=== PATIENT | male | born 1970 | race Caucasian/White ===

== ENCOUNTER 2019-11-23 11:22 | Observation (INO) | payer SELFPAY ==
[~2019-11-23] VITALS: Ht 170.2 cm; Wt 86.4 kg
[~2019-11-23 11:22] MED LIST: NITROGLYCERIN 0.2 MG/HR PATCH TD SCH
[2019-11-23] MEDS ORDERED: CARV3.12 PO (11:55)
[2019-11-23] MEDS ORDERED: FURO80TA2 PO (11:55)
[2019-11-23] MEDS ORDERED: XANA0.5T PO (11:55)
[2019-11-23] MEDS ORDERED: CARV6.25 PO (11:55)
[2019-11-23] MEDS ORDERED: CLOP75TA2 PO (11:55)
[2019-11-23 12:03] LABS: BASO # 0.1 10^3/uL (0.0-0.2); BASO % 0.7 % (0.0-1.0); EOS # 0.2 10^3/uL (0.0-0.5); EOS % 3.1 % (0.0-3.0); HEMATOCRIT 38.7 % (42.0-52.0); LYMPH # 1.2 10^3/uL (1.5-5.0); LYMPH % 16.7 % (24.0-44.0); MEAN CORPUSCULAR HEMOGLOBIN 26.3 pg (27.0-33.0); MEAN CORPUSCULAR VOLUME 84.7 fl (80.0-96.0); MONO # 0.4 10^3/uL (0.0-0.8); MONO % 5.9 % (0.0-5.0); NEUTROPHILS # 5.3 10^3/uL (1.5-8.5); NEUTROPHILS % 73.3 % (36.0-66.0); PLATELET COUNT, AUTOMATED 307 10^3/uL (150-450); RED BLOOD COUNT 4.57 10^6/uL (4.30-6.10); WHITE BLOOD COUNT 7.2 10^3/uL (4.0-10.0)
[2019-11-23 12:26] LABS: INR 1.05; PROTHROMBIN TIME 13.4 SECONDS (11.8-14.0)
[2019-11-23 12:27] LABS: PARTIAL THROMBOPLASTIN TIME 31.6 SECONDS (25.0-38.4)
[2019-11-23] MEDS ORDERED: CLOPIDOGREL 75 MG TAB PO ONE (12:30)
[2019-11-23] MEDS ORDERED: CARVedilol 6.25 MG TAB PO ONE (12:30)
[2019-11-23] MEDS ORDERED: ALPRAZolam 0.25 MG TAB PO ONE (12:30)
[2019-11-23] MEDS ORDERED: FUROSEMIDE 100MG/10ML VIAL (J1940) IV ONE (12:30)
[2019-11-23 12:33] LABS: ALBUMIN 4.1 GM/DL (3.2-5.2); ALT/SGPT 20 U/L (12-78); BILIRUBIN,DIRECT 0.3 MG/DL (0.0-0.2); BILIRUBIN,TOTAL 1.8 MG/DL (0.2-1.0); BLOOD UREA NITROGEN 14 MG/DL (7-18); CALCIUM LEVEL 9.4 MG/DL (8.5-10.1); CARBON DIOXIDE LEVEL 26 MEQ/L (21-32); CHLORIDE LEVEL 107 MEQ/L (98-107); CK-MB VALUE MASS 3.7 NG/ML (<3.6); CPK CREATINE PHOSPHOKINASE 79 U/L (39-308); CREATININE FOR GFR 0.91 MG/DL (0.70-1.30); GLOMERULAR FILTRATION RATE > 60.0 (>56); GLUCOSE, FASTING 98 MG/DL (70-100); LIPASE 115 U/L (73-393); MB/CK RELATIVE INDEX 4.68 (< OR =4); NT-PRO BNP 10793 PG/ML (<125); POTASSIUM SERUM 4.5 MEQ/L (3.5-5.1); SODIUM LEVEL 139 MEQ/L (136-145); TOTAL PROTEIN 7.8 GM/DL (6.4-8.2); TROPONIN I 0.06 NG/ML (< 0.10)
[2019-11-23 12:37] LABS: FREE T4 0.99 NG/DL (0.76-1.46); THYROID STIMULATING HORMONE 0.861 uIU/ML (0.358-3.740)
[2019-11-23] MEDS ORDERED: ALPR0.25 PO (12:54)
[2019-11-23] MEDS ORDERED: ACETAMINOPHEN TAB 650MG DOSE (2X325MG) PO PRN (13:30)
[2019-11-23] MEDS ORDERED: MOM 30ML SUSPENSION UDC PO PRN (13:30)
[2019-11-23] MEDS ORDERED: MAALOX 30 ML SUSP *UDC PO PRN (13:30)
--- NOTE | 2019-11-23 13:46 | HPEPDOC ---
General Date of Admission Date of Service: Nov 23, 2019 Chief Complaint The patient is a 49-year-old male admitted with a reason for visit of Shortness Of Breath/ Anxiety. Source: Patient Exam Limitations: No limitations Timing/Duration: Other Severity: Moderate Associated Symptoms: Other (chest pain) History of Present Illness This is a 49 years old white male who recently had a four-vessel bypass surgery done in [place] in September 2019. Patient has not followed up with any cardiol ogist physician afterwards and he also ran out of his medications some time ago. Patient complaining of increasing chest pressure but not chest pain, nonradiating, persistent, associated with shortness of breath exacerbated by ambulation, not relieved with any analgesics since last 2 weeks. Patient being admitted with the diagnosis of most likely acute systolic congestive heart failure and noncompliance with medication therapy. Home Medications Scheduled Carvedilol (Carvedilol) 3.125 Mg Tablet, 3.125 MG PO BID, (Reported) prescribed 09/20/19 for 30 days. patient states take both 6.25mg bid and 3.125 bid Carvedilol (Carvedilol) 6.25 Mg Tablet, 6.25 MG PO BID, (Reported) prescribed 10/10/19 30 days patient states takes both 6.25mg bid and 3.125mg bid Clopidogrel Bisulfate (Clopidogrel) 75 Mg Tablet, 75 MG PO DAILY, (Reported) Furosemide (Furosemide) 80 Mg Tablet, 80 MG PO DAILY, (Reported) Scheduled PRN Alprazolam (Alprazolam) 0.25 Mg Tablet, 0.25 MG PO BID PRN for ANXIETY, (Reported) Allergies Coded Allergies: Penicillins (Verified Allergy, Severe, throat swelling , 11/23/19) lorazepam (Verified Adverse Reaction, Intermediate, violent , 11/23/19) Past Medical History Medical History Hypertension, hyperlipidemia, coronary artery disease status post four-vessel bypass surgery, anxiety Surgical History Quadruple bypass surgery Social History * Smoker: former Smoker, other (, quit in September 2019) Alcohol: Denies Drugs: marijuana A-FIB/CHADSVASC A-FIB History Current/History of A-Fib/PAF?: No Review of Systems Constitutional: Denies: Chills, Fever, Malaise, Night Sweats, Weakness, Fatigue, Weight Loss, Lethargy, Other Eyes: Denies: Pain, Vision change, Conjunctivae inflammation, Eyelid inf lammation, Redness, Other ENT: Denies: Head Aches, Ear Pain, Dysphagia, Sinus Congestion, Post Nasal Drip, Sore Throat, Epistaxis, Other Symptoms Skin: Denies: Rash, Lesions, Jaundice, Bruising, Itching, Dry, Breakdown, Nail Changes, Other Pulmonary: Reports: Dyspnea Cardiovascular: Reports: Other Symptoms (, chest pressure) Gastrointestinal: Denies: Nausea, Vomiting, Abdominal Pain, Diarrhea, Constipation, Melena, Hematochezia, Other Symptoms Genitourinary: Denies: Dysuria, Frequency, Incontinence, Hematuria, Retention, Other Symptoms Hematologic: Denies: Bruising, Bleeding Excessively, Petecchia, Purpura, Enlarged Lymph Nodes, Other Hematologic Endocrine: Denies: Polydipsia, Polyphagia, Polyuria, Heat Intolerance, Cold Intolerance, Other Endocrine Sx Musculoskeletal: Denies: Neck Pain, Back Pain, Shoulder Pain, Arm Pain, Hand Pain, Leg Pain, Foot Pain, Joint Pain, Muscle Pain, Spasms, Other Symptoms Neurological: Denies: Weakness, Numbness, Incoordination, Change in speech, Confusion, Seizures, Other Symptoms Psych: Denies: Mood Normal, Anxiety, Depression, Memory Issues, Thoughts of Self Harm, Anger, Thoughts of Harming Other, Other Psych Physical Examination General Exam: Positive: Alert, Cooperative Eye Exam: Positive: PERRLA, Conjunctiva & lids normal ENT Exam: Positive: Atraumatic, Mucous membr. moist/pink Neck Exam: Positive: Supple Chest Exam: Positive: Other (, bilateral basal crackles) Heart Exam: Positive: Rate Normal, Normal S1, Normal S2 Abdomen Exam: Positive: Normal bowel sounds, Soft Extremity Exam: Positive: Other (, 1+ bipedal edema) Skin Exam: Positive: Nl turgor and temperature Neuro Exam: Positive: Strength at 5/5 X4 ext, Cranial Nerves 3-12 NL Psych Exam: Positive: Anxiety, Oriented x 3 Vital Signs Vital Signs Date Time Temp Pulse Resp B/P (MAP) Pulse Ox O2 Delivery O2 Flow Rate FiO2 11/23/19 13:00 157/99 (118) 11/23/19 12:52 101 97 11/23/19 11:24 97.8 12 Room Air Laboratory Data Labs 24H Laboratory Tests 2 11/23/19 11:50: Immature Granulocyte % (Auto) 0.3, Neutrophils (%) (Auto) 73.3H, Lymphocytes (%) (Auto) 16.7L, Monocytes (%) (Auto) 5.9H, Eosinophils (%) (Auto) 3.1H, Basophils (%) (Auto) 0.7, Neutrophils # (Auto) 5.3, Lymphocytes # (Auto) 1.2L, Monocytes # (Auto) 0.4, Eosinophils # (Auto) 0.2, Basophils # (Auto) 0.1, Nucleated Red Blood Cells % (auto) 0.0, Prothrombin Time 13.4, Prothromb Time International Ra silvia 1.05, Activated Partial Thromboplast Time 31.6, Anion Gap 6L, Glomerular Filtration Rate > 60.0, Calcium Level 9.4, Total Bilirubin 1.8H, Direct Bilirubin 0.3H, Aspartate Amino Transf (AST/SGOT) 17, Alanine Aminotransferase (ALT/SGPT) 20, Alkaline Phosphatase 108, Total Creatine Kinase 79, Creatine Kinase MB 3.7H, Creatine Kinase MB Relative Index 4.68H, Troponin I 0.06, YK-Orv-D-Type Natriuretic Peptide 26651G, Total Protein 7.8, Albumin 4.1, Albumin/Globulin Ratio 1.11, Lipase 115, Thyroid Stimulating Hormone (TSH) 0.861, Free Thyroxine 0.99 CBC/BMP Laboratory Tests 11/23/19 11:50 Problems (1) Acute systolic CHF (congestive heart failure) Status: Acute Problem Text: 49 years old white male with past medical history of hypertension, hyperlipidemia, CAD status post quadruple bypass surgery non compliant with meds developed increasing shortness of breath since last 2 weeks His temperature 97.8, heart rate 103, blood pressure 151/101. Physical examination bilateral crackles on chest auscultation Patient's chest x-ray consistent with bilateral vascular congestion CBC, CMP essentially normal BUN of 14, creatinine 0.91. [place]onin [place] 0[place]06[place] [address] Patient received Lasix 80 mg IV in ED and is being admitted under observation for diuresis. Admit patient to PCU with telemetry Lasix 80 mg IV every 12 hours nitrodur 0.2 mg per hour Echocardiogram Intake and output Telemetry monitoring Serial troponin BNP in a.m. Continue all home meds Low-sodium diet Activity as tolerated DVT prophylaxis with Lovenox (2) CAD (coronary artery disease) Status: Chronic Problem Text: Continue home meds including beta blockers and Plavix . We will repeat lipid profile and thyroid functions in a.m. Patient will probably need to follow-up with a local educational program assistant once he is discharged (3) HTN (hypertension) Status: Chronic Problem Text: Continue home meds (4) Hyperlipidemia Status: Chronic Problem Text: Patient currently on not on any statins Lipid profile has been ordered Plan / VTE VTE Prophylaxis Ordered?: Yes DAYAN EDDY MD Nov 23, 2019 13:46
--- NOTE | 2019-11-23 14:13 | REP ---
CHEST SINGLE VIEW: Single view of the chest is performed. There are no prior studies. There is cardiomegaly with mild vascular congestion. Mild increased interstitial markings bilaterally may represent mild interstitial edema or fibrosis. No consolidation is seen. Mediastinal silhouette is unremarkable. There are multiple sternal wires present. Electronically Signed by Morgan Lee MD 11/23/2019 04:51 P
[2019-11-23 14:20] VITALS: BP 107/68
[2019-11-23 16:00] VITALS: BP 102/73
[2019-11-23] MEDS ORDERED: SLF 3 ML SYR IV PRN (16:00)
[2019-11-23] MEDS: ENOXAPARIN 40MG/0.4ML SYRINGE (J1650 PER 10MG) SC SCH (18:01)
[2019-11-23 20:00] VITALS: BP 127/70
[2019-11-23] MEDS: DOCUSATE SODIUM 100 MG CAP PO SCH (20:58)
[2019-11-23] MEDS: SLF 3 ML SYR IV SCH (20:59)
[2019-11-23] MEDS: CARVedilol 3.125 MG TAB PO SCH (20:59)
[2019-11-23] MEDS ORDERED: FUROSEMIDE 100MG/10ML VIAL (J1940) IV SCH (21:00)
[2019-11-23] MEDS: **NOTE PATIENT COMMENT** MISC XX SCH (21:00)
[2019-11-23] MEDS: diphenhydrAMINE 25MG CAP PO PRN (21:19)
[2019-11-24] VITALS: BP 128/67
--- NOTE | 2019-11-24 00:52 | ECGEPIP ---
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
[2019-11-24 04:00] VITALS: BP 106/59
[2019-11-24 04:09] LABS: HEMATOCRIT 42.3 % (42.0-52.0); MEAN CORPUSCULAR HEMOGLOBIN 25.7 pg (27.0-33.0); MEAN CORPUSCULAR HGB CONC 30.7 g/dl (32.0-36.5); MEAN CORPUSCULAR VOLUME 83.6 fl (80.0-96.0); PLATELET COUNT, AUTOMATED 303 10^3/uL (150-450); RED BLOOD COUNT 5.06 10^6/uL (4.30-6.10)
[2019-11-24] MEDS: SLF 3 ML SYR IV SCH ×3 (06:09→21:28)
--- NOTE | 2019-11-24 06:23 | ECHO ---
DATE OF PROCEDURE: 11/23/2019 DATE OF : 1970 AGE: 49 PATIENT LOCATION: Room 3212 REFERRING PROVIDER: Dr. Dominguez REASON FOR THE STUDY: Congestive heart failure. 2-D MEASUREMENTS: IVS: 1.4 cm LV: 7.2 cm LVPW: 1.0 cm LA: 5.7 cm Aorta: 3.1 cm IVC: 2.1 cm DOPPLER MEASUREMENTS: Peak velocity across the aortic valve: 1.4 m/sec Peak velocity across the LVOT: 0.65 m/sec Mitral E: 1.2 Maximum tricuspid valve velocity: 3.2 m/sec 2-D COMMENTS: 1. Markedly enlarged left ventricle with preserved left ventricular thickness but with a severe global left ventricular systolic dysfunction. There is severe global hypokinesis. The estimated left ventricular ejection fraction is 20-25%. 2. Moderately enlarged left atrium. The right atrium appeared to be mildly enlarged. The right ventricle may be normal in size in limited views. 3. The atrial septum appeared to be normal without evidence of defect or shunt. 4. Normal aortic root. 5. No pericardial effusion seen. 6. Moderately calcified mitral annulus, could not rule out prior mitral valve repair. The anterior mitral leaflet was minimally restricted but no significant gradient noted. Mildly calcified aortic valve with normal leaf excursion. Normal tricuspid valve and pulmonic valves. The proximal pulmonary artery branches also appear to be normal. 7. The inferior vena cava was dilated, central venous pressure is most likely elevated. DOPPLER: It detects moderately severe mitral regurgitation, mild to moderate tricuspid regurgitation, and trace pulmonic regurgitation. The calculated pulmonary artery systolic pressure varies between 40-50 mmHg. Assessment of the ventricular diastolic function was limited. IMPRESSION: 1. Severe global left ventricular systolic dysfunction with severe global hypokinesis and a dilated left ventricle. 2. Aortic valve sclerosis without stenosis or aortic regurgitation. 3. Mitral annulus calcification with moderately enlarged left atrium and moderately severe mitral regurgitation. 4. Mild to moderate tricuspid regurgitation with moderate pulmonary hypertension and mildly enlarged right atrium. 5. Trace pericardial effusion. 6. There are features of elevated central venous pressure, the inferior vena cava was mildly enlarged. MTDD
[2019-11-24 08:00] VITALS: BP 142/80
[2019-11-24] MEDS: FUROSEMIDE 40 MG TAB PO SCH ×2 (08:23→17:01)
[2019-11-24] MEDS: CARVedilol 3.125 MG TAB PO SCH ×2 (08:23→21:30)
[2019-11-24] MEDS: DOCUSATE SODIUM 100 MG CAP PO SCH ×2 (08:24→21:29)
[2019-11-24] MEDS: ENOXAPARIN 40MG/0.4ML SYRINGE (J1650 PER 10MG) SC SCH (08:24)
[2019-11-24] MEDS: CLOPIDOGREL 75 MG TAB PO SCH (08:24)
--- NOTE | 2019-11-24 09:52 | IPNPDOC ---
Subjective Date Seen The patient was seen on 11/24/19. Subjective Chief Complaint/HPI . Patient is feeling better, decreased shortness of breath, no chest pain General: Denies: ROS Unobtainable, Chills, Night Sweats, Fatigue, Malaise, Normal Appetite, Other Symptoms Constitutional: Denies: Chills, Fever, Malaise, Night Sweats, Weakness, Fatigue, Weight Loss, Lethargy, Other Pulmonary: Reports: Other Symptoms (bilateral basal crackles); Denies: Dyspnea, Cough, Pleuritic Chest Pain Cardiovascular: Denies: Chest Pain, Palpitations, Orthopnea, Paroxysmal Noc. Dyspnea, Edema, Lt Headedness, Other Symptoms Gastrointestinal: Denies: Nausea, Vomiting, Abdominal Pain, Diarrhea, Constipation, Melena, Hematochezia, Other Symptoms Musculoskeletal: Denies: Neck Pain, Back Pain, Shoulder Pain, Arm Pain, Hand Pain, Leg Pain, Foot Pain, Joint Pain, Muscle Pain, Spasms, Other Symptoms Neurological: Denies: Weakness, Numbness, Incoordination, Change in speech, Confusion, Seizures, Other Symptoms Objective Physical Examination ENT Exam: Positive: Atraumatic, Mucous membr. moist/pink Neck Exam: Positive: Supple Chest Exam: Positive: Clear to auscultation, Other (basal crackles) Heart Exam: Positive: Rate Normal, Normal S1, Normal S2, Other (bilateral basal crackles) Abdomen Exam: Positive: Normal bowel sounds, Soft Extremity Exam: Positive: Other (, 1+ bipedal edema) Skin Exam: Positive: Nl turgor and temperature Neuro Exam: Positive: Strength at 5/5 X4 ext, Cranial Nerves 3-12 NL Psych Exam: Positive: Anxiety, Oriented x 3 Assessment /Plan Problems (1) Acute systolic CHF (congestive heart failure) Status: Acute Problem Text: Patient was started on Lasix 80 mg IV every 12 hours, but he did not receive secondary to systolic blood pressure being less than 110 , But he did this receive 1 dose in ED and had good urine output of 1355 Patient echocardiogram shows: 1. Severe global left ventricular systolic dysfunction with severe global hypokinesis and a dilated left ventricle. 2. Aortic valve sclerosis without stenosis or aortic regurgitation. 3. Mitral annulus calcification with moderately enlarged left atrium and moderately severe mitral regurgitation. 4. Mild to moderate tricuspid regurgitation with moderate pulmonary hy pertension and mildly enlarged right atrium. 5. Trace pericardial effusion. 6. There are features of elevated central venous pressure, the inferior vena cava was mildly enlarged Will change patient's Lasix to 40 mg by mouth twice a day Nitropatch also was also DC'd secondary to low blood pressure and no complaints of chest pain, negative troponins Extensile noncompliance. Counseling will one was done and all risks of noncompliance with meds were explained to him including massive myocardial infarction, heart failure, arrhythmia and . We will try to schedule her with a local sack lifter for follow-up before discharge (2) Hyperlipidemia Status: Chronic Problem Text: Patient is not on any statins His lipid profile is still pending Once the lipid profile is available. Treatment will be started with a stat and if he does not have any adverse reactions to statins (3) HTN (hypertension) Status: Chronic Problem Text: Currently, patient's systolic pressures between 100-110 Continue home medications including beta blockers, as per orders (4) CAD (coronary artery disease) Status: Chronic Problem Text: Status post quadruple bypass surgery in [place] recently Continue present meds and will arrange follow with local sack lifter before discharge Plan/VTE VTE Prophylaxis Ordered?: Yes VS, I&O, 24H, Fishbone Vital Signs/I&O Vital Signs Date Time Temp Pulse Resp B/P (MAP) Pulse Ox O2 Delivery O2 Flow Rate FiO2 11/24/19 08:23 83 142/80 11/24/19 08:00 97.8 16 97 Room Air I&O- Last 24 Hours up to 6 AM 11/24/19 05:59 Intake Total 1320 ml Output Total 3075 ml Balance -1755 ml Laboratory Data 24H LABS Laboratory Tests 2 11/23/19 11:50: Immature Granulocyte % (Auto) 0.3, Neutrophils (%) (Auto) 73.3H, Lymphocytes (%) (Auto) 16.7L, Monocytes (%) (Auto) 5.9H, Eosinophils (%) (Auto) 3.1H, Basophils (%) (Auto) 0.7, Neutrophils # (Auto) 5.3, Lymphocytes # (Auto) 1.2L, Monocytes # (Auto) 0.4, Eosinophils # (Auto) 0.2, Basophils # (Auto) 0.1, Nucleated Red Blood Cells % (auto) 0.0, Prothrombin Time 13.4, Prothromb Time International Ratio 1.05, Activated Partial Thromboplast Time 31.6, Anion Gap 6L, Glomerular Filtration Rate > 60.0, Calcium Level 9.4, Total Bilirubin 1.8H, Direct Bilirubin 0.3H, Aspartate Amino Transf (AST/SGOT) 17, Alanine Aminotransferase (ALT/SGPT) 20, Alkaline Phosphatase 108, Total Creatine Kinase 79, Creatine Kinase MB 3.7H, Creatine Kinase MB Relative Index 4.68H, Troponin I 0.06, SR-Npu-O-Type Natriuretic Peptide 52422S, Total Protein 7.8, Albumin 4.1, Albumin/Globulin Ratio 1.11, Lipase 115, Thyroid Stimulating Hormone (TSH) 0.861, Free Thyroxine 0.99 11/23/19 18:51: Troponin I 0.04# 11/24/19 03:29: Nucleated Red Blood Cells % (auto) 0.0, Troponin I 0.04 CBC/BMP Laboratory Tests 11/23/19 11:50 11/24/19 03:29 DAYAN EDDY MD Nov 24, 2019 09:52
[2019-11-24] MEDS: ALPRAZolam 0.25 MG TAB PO PRN ×2 (10:22→23:43)
[2019-11-24] MEDS: NICOTINE 14 MG/24 HR TRANSDERMAL TD SCH (10:22)
[2019-11-24 11:47] LABS: ALBUMIN 3.8 GM/DL (3.2-5.2); ALT/SGPT 21 U/L (12-78); BILIRUBIN,TOTAL 2.1 MG/DL (0.2-1.0); BLOOD UREA NITROGEN 15 MG/DL (7-18); CALCIUM LEVEL 8.7 MG/DL (8.5-10.1); CARBON DIOXIDE LEVEL 26 MEQ/L (21-32); CHLORIDE LEVEL 104 MEQ/L (98-107); CHOLESTEROL LEVEL 176 MG/DL (<200); CHOLESTEROL RISK RATIO 5.866 (<5); CREATININE FOR GFR 1.09 MG/DL (0.70-1.30); FREE THYROXINE INDEX 3.1 % (1.4-3.8); GLOMERULAR FILTRATION RATE > 60.0 (>56); GLUCOSE, FASTING 99 MG/DL (70-100); HDL CHOLESTEROL 30 MG/DL (>40); LDL CHOLESTEROL 103 MG/DL (<100); MAGNESIUM LEVEL 1.8 MG/DL (1.8-2.4); NON-HDL-C 146 MG/DL; NT-PRO BNP 5299 PG/ML (<125); POTASSIUM SERUM 3.5 MEQ/L (3.5-5.1); SODIUM LEVEL 139 MEQ/L (136-145); T UPTAKE 36 % (33-40); THYROID STIMULATING HORMONE 0.641 uIU/ML (0.358-3.740); THYROXINE (T4) 8.6 UG/DL (4.5-12.0); TOTAL PROTEIN 7.4 GM/DL (6.4-8.2); TRIGLYCERIDES LEVEL 214 MG/DL (<150); TROPONIN I 0.04 NG/ML (< 0.10)
[2019-11-24 12:00] VITALS: BP 129/78
[2019-11-24 16:00] VITALS: BP 126/70
[2019-11-24 20:00] VITALS: BP 118/78
[2019-11-24] MEDS: **NOTE PATIENT COMMENT** MISC XX SCH (21:00)
[2019-11-24] MEDS: diphenhydrAMINE 25MG CAP PO PRN (21:29)
[2019-11-25] VITALS: BP 130/78
[2019-11-25 04:00] VITALS: BP 124/79
[2019-11-25] MEDS: SLF 3 ML SYR IV SCH (05:11)
[2019-11-25 07:53] LABS: HEMATOCRIT 41.3 % (42.0-52.0); HEMOGLOBIN 13.1 g/dl (13.5-17.5); MEAN CORPUSCULAR HEMOGLOBIN 26.6 pg (27.0-33.0); MEAN CORPUSCULAR HGB CONC 31.7 g/dl (32.0-36.5); MEAN CORPUSCULAR VOLUME 83.8 fl (80.0-96.0); PLATELET COUNT, AUTOMATED 341 10^3/uL (150-450); RED BLOOD COUNT 4.93 10^6/uL (4.30-6.10); WHITE BLOOD COUNT 7.1 10^3/uL (4.0-10.0)
[2019-11-25 08:00] VITALS: BP 121/81
--- NOTE | 2019-11-25 08:09 | REP ---
Portable chest x-ray: Sitting AP view. History: CHF. Comparison chest x-ray: November 23, 2019. Findings: The patient is status post prior median sternotomy. EKG monitoring electrodes are seen. Cardiomegaly is again observed unchanged. Pulmonary vasculature is slightly cephalized as before. There is slight fissural thickening in the minor fissure which is unchanged as well. No idalia pleural effusion is seen. No infiltrate is noted. Impression: Mild cardiomegaly prior median sternotomy. Mild cephalization unchanged. Electronically Signed by Stephen Elliott MD 11/25/2019 08:01 A
[2019-11-25 08:35] LABS: ALBUMIN 3.7 GM/DL (3.2-5.2); ALT/SGPT 20 U/L (12-78); BILIRUBIN,TOTAL 1.7 MG/DL (0.2-1.0); BLOOD UREA NITROGEN 16 MG/DL (7-18); CALCIUM LEVEL 8.9 MG/DL (8.5-10.1); CARBON DIOXIDE LEVEL 26 MEQ/L (21-32); CHLORIDE LEVEL 104 MEQ/L (98-107); CREATININE FOR GFR 1.09 MG/DL (0.70-1.30); GLOMERULAR FILTRATION RATE > 60.0 (>56); GLUCOSE, FASTING 115 MG/DL (70-100); NT-PRO BNP 1881 PG/ML (<125); POTASSIUM SERUM 3.8 MEQ/L (3.5-5.1); SODIUM LEVEL 138 MEQ/L (136-145)
[2019-11-25 08:43] VITALS: BP 121/81
[2019-11-25] MEDS: NICOTINE 14 MG/24 HR TRANSDERMAL TD SCH (08:43)
[2019-11-25] MEDS: FUROSEMIDE 40 MG TAB PO SCH (08:43)
[2019-11-25] MEDS: CARVedilol 3.125 MG TAB PO SCH (08:43)
[2019-11-25] MEDS: DOCUSATE SODIUM 100 MG CAP PO SCH (08:43)
[2019-11-25] MEDS: CLOPIDOGREL 75 MG TAB PO SCH (08:43)
[2019-11-25] MEDS: ENOXAPARIN 40MG/0.4ML SYRINGE (J1650 PER 10MG) SC SCH (08:44)
[2019-11-25] MEDS ORDERED: CLOP75TA2 PO (09:05)
[2019-11-25] MEDS ORDERED: CARV6.25 PO (09:05)
[2019-11-25] MEDS ORDERED: LASI40TA9 PO (09:05)
[2019-11-25] MEDS ORDERED: LIPI20TA PO (09:05)
[2019-11-25] MEDS ORDERED: CARV3.12 PO (09:05)
[2019-11-25] MEDS ORDERED: ALPR0.25 PO (09:05)
--- NOTE | 2019-11-25 09:53 | DS.PDOC ---
Discharge Summary General Date of Admission Nov 23, 2019 at 11:23 Date of Discharge 11/25/19 Discharge Summary PROCEDURES PERFORMED DURING STAY: None. ADMITTING DIAGNOSES: 1. Acute systolic CHF. DISCHARGE DIAGNOSES: 1. Acute systolic heart failure, CAD, noncompliance with meds, hyperlipidemia, anxiety disorder COMPLICATIONS/CHIEF COMPLAINT: Acute Systolic Chf. HISTORY OF PRESENT ILLNESS: This is a 49 years old white male who recently had a four-vessel bypass surgery done in [place] in September 2019. Patient has not followed up with any staff development coordinator rn physician afterwards and he also ran out of his medications some time ago. Patient complaining of increasing chest pressure but not chest pain, nonradiating, persistent, associated with shortness of breath exacerbated by ambulation, not relieved with any analgesics since last 2 weeks. Patient being admitted with the diagnosis of most likely acute systolic congestive heart failure and noncompliance with medication therapy.. HOSPITAL COURSE: 49 years old white male with past medical history of CAD, four- vessel bypass surgery, hyperlipidemia, came in with increasing shortness of breath and has been noncompliant to his meds since he had a bypass surgery done in September 2019 in [place]. Patient received IV Lasix 80 mg IV in ED and he was admitted to PCU with exacerbation of CHF. Patient also was started on IV Lasix 80 mg IV every 12 hours, which was later changed to 40 mg by mouth twice a day. All patient's home medication were restarted including Coreg. Echocardiogram was obtained which shows severe global left ventricular systolic dysfunction with severe global hypokinesis and dilated left ventricle with an EF of 20-25%. Patient responded very well to all his meds which were restarted during his inpatient inpatient stay. Patient's repeat chest x-ray were done today, which is essentially within normal limits as well as his blood work is essentially within normal limits. Note patient's cardiac enzymes came out negative during his i npatient stay at this time. Patient has been counseled extensively regarding compliance with his meds which she understands very well and he is planning to follow with our local staff development coordinator rn Dr. Son as soon as possible for his long- term care. Patient will be discharged home on all his home meds as well as Lipitor 20 mg by mouth daily secondary to decrease his LDL less than 80. DISCHARGE MEDICATIONS: Please see below. ALLERGIES: Please see below. PHYSICAL EXAMINATION ON DISCHARGE: VITAL SIGNS: Please see below. GENERAL: Within normal limits HEENT: PERRLA. Extraocular muscles intact NECK: Supple. Negative JVD, negative lymphadenopathy CARDIOVASCULAR EXAMINATION: S1, S2, regular RESPIRATORY EXAMINATION: Clear to A&P ABDOMINAL EXAMINATION: Benign EXTREMITIES: Bilateral pedal Edema has resolved SKIN: Normal NEUROLOGICAL EXAMINATION: . No focal motor sensory deficit PSYCHIATRIC EXAMINATION: Normal LABORATORY DATA: Please see below. IMAGING: Echocardiogram: 1. Severe global left ventricular systolic dysfunction with severe global hypokinesis and a dilated left ventricle. 2. Aortic valve sclerosis without stenosis or aortic regurgitation. 3. Mitral annulus calcification with moderately enlarged left atrium and moderately severe mitral regurgitation. 4. Mild to moderate tricuspid regurgitation with moderate pulmonary hypertension and mildly enlarged right atrium. 5. Trace pericardial effusion. 6. There are features of elevated central venous pressure, the inferior vena cava was mildly enlarged. PROGNOSIS: Fair ACTIVITY: As tolerated. DIET: , Low-cholesterol, low-salt DISCHARGE PLAN: Follow Dr. Son as an outpatient as soon as possible DISPOSITION: . Home DISCHARGE INSTRUCTIONS: 1. As per discharge instructions. ITEMS TO FOLLOWUP ON ON OUTPATIENT: 1. Follow up with Dr. Son as outpatient as soon as possible. DISCHARGE CONDITION: Stable. TIME SPENT ON DISCHARGE: 37 minutes. Vital Signs/I&Os Vital Signs Date Time Temp Pulse Resp B/P (MAP) Pulse Ox O2 Delivery O2 Flow Rate FiO2 11/25/19 08:43 79 121/81 11/25/19 08:00 96.8 19 96 Room Air I&O- Last 24 Hours up to 6 AM 11/25/19 06:00 Intake Total 1610 ml Output Total 1350 ml Balance 260 ml Laboratory Data Labs 24H Laboratory Tests 2 11/24/19 10:58: Anion Gap 9, Glomerular Filtration Rate > 60.0, Calcium Level 8.7, Magnesium Level 1.8, Total Bilirubin 2.1H, Aspartate Amino Transf (AST/SGOT) 22, Alanine Aminotransferase (ALT/SGPT) 21, Alkaline Phosphatase 105, Troponin I 0.04, IT-Lgv-P-Type Natriuretic Peptide 5299H, Total Protein 7.4, Albumin 3.8, Albumin/Globulin Ratio 1.06, Triglycerides Level 214H, Total Cholesterol 176, LDL Cholesterol 103H, Non-HDL Cholesterol (LDL + VLDL) 146, Total HDL Choles terol 30L, Cholesterol/HDL Ratio 5.866H, Thyroid Stimulating Hormone (TSH) 0.641, Free Thyroxine Index 3.1, Thyroxine (T4) 8.6, Triiodothyronine (T3) Uptake 36 11/25/19 07:34: Anion Gap 8, Glomerular Filtration Rate > 60.0, Calcium Level 8.9, Total Bilirubin 1.7H, Aspartate Amino Transf (AST/SGOT) 19, Alanine Aminotransferase (ALT/SGPT) 20, Alkaline Phosphatase 109, JR-Uph-Z-Type Natriuretic Peptide 1881H, Total Protein 8.0, Albumin 3.7, Albumin/Globulin Ratio 0.86L, Nucleated Red Blood Cells % (auto) 0.0 CBC/BMP Laboratory Tests 11/24/19 10:58 11/25/19 07:34 Discharge Medications Scheduled Atorvastatin Calcium (Lipitor) 20 Mg Tablet, 20 MG PO DAILY Carvedilol (Carvedilol) 3.125 Mg Tablet, 3.125 MG PO BID prescribed 09/20/19 for 30 days. patient states take both 6.25mg bid and 3.125 bid Carvedilol (Carvedilol) 6.25 Mg Tablet, 6.25 MG PO BID prescribed 10/10/19 30 days patient states takes both 6.25mg bid and 3.125mg bid Clopidogrel Bisulfate (Clopidogrel) 75 Mg Tablet, 75 MG PO DAILY Furosemide (Lasix) 40 Mg Tablet, 40 MG PO BID Scheduled PRN Alprazolam (Alprazolam) 0.25 Mg Tablet, 0.25 MG PO BID PRN for ANXIETY Allergies Coded Allergies: Penicillins (Verified Allergy, Severe, throat swelling , 11/23/19) lorazepam (Verified Adverse Reaction, Intermediate, violent , 11/23/19) DAYAN EDDY MD Nov 25, 2019 09:53
== END 2019-11-25 11:17 | disposition home or self-care (01) ==
LOC: M ED 11:22 → M ED INP 11:23 → ENRESERVTM 13:41 → ENRESERVDT 13:41 → M PCU 14:17
PROVIDERS: ADMIT Internal Medicine; ATTEND Internal Medicine
DX: I50.21 Acute systolic (congestive) heart failure (principal); I25.10 Atherosclerotic heart disease of native coronary artery without angina pectoris; Z91.14 Patient's other noncompliance with medication regimen; E78.5 Hyperlipidemia, unspecified; F41.9 Anxiety disorder, unspecified; Z95.1 Presence of aortocoronary bypass graft; R06.02 Shortness of breath; I11.0 Hypertensive heart disease with heart failure; Z87.891 Personal history of nicotine dependence; Z79.899 Other long term (current) drug therapy; Z79.02 Long term (current) use of antithrombotics/antiplatelets; Z88.0 Allergy status to penicillin; Z88.8 Allergy status to other drugs, medicaments and biological substances
CPT/HCPCS: 36415; 71045; 80048; 80053; 80061; 80076; 82550; 82553; 83690; 83735; 83880; 84436; 84439; 84443; 84479; 84484; 85025; 85027; 85610; 85730; 93005; 93041; 93306; 94760; 96372; 96374; 96376; 99285; J1650; J1940

== ENCOUNTER → 2019-12-21 | Outpatient (CLI) | payer MEDICAID ==
[~2019-12-21] MED LIST changes: +ALPR0.25 PO; +ASPI-1 PO; +CARV3.12 PO; +CARV6.25 PO; +CLOP75TA2 PO; +ENTR1TAB7 PO; +FURO80TA2 PO; +LASI40TA9 PO; +LIPI20TA PO; -NITROGLYCERIN 0.2 MG/HR PATCH TD SCH; +XANA0.5T PO
[2019-12-21 16:43] LABS: HEMATOCRIT 42.1 % (42.0-52.0); HEMOGLOBIN 13.2 g/dl (13.5-17.5); MEAN CORPUSCULAR HGB CONC 31.4 g/dl (32.0-36.5); MEAN CORPUSCULAR VOLUME 82.9 fl (80.0-96.0); PLATELET COUNT, AUTOMATED 329 10^3/uL (150-450); RED BLOOD COUNT 5.08 10^6/uL (4.30-6.10); WHITE BLOOD COUNT 6.7 10^3/uL (4.0-10.0)
[2019-12-21 17:12] LABS: BLOOD UREA NITROGEN 19 MG/DL (7-18); CALCIUM LEVEL 9.3 MG/DL (8.5-10.1); CARBON DIOXIDE LEVEL 29 MEQ/L (21-32); CHLORIDE LEVEL 105 MEQ/L (98-107); CREATININE FOR GFR 1.09 MG/DL (0.70-1.30); GLOMERULAR FILTRATION RATE > 60.0 (>56); GLUCOSE, FASTING 89 MG/DL (70-100); NT-PRO BNP 1232 PG/ML (<125); POTASSIUM SERUM 3.9 MEQ/L (3.5-5.1); SODIUM LEVEL 141 MEQ/L (136-145)
== END ==
LOC: M WUC 15:02
PROVIDERS: ATTEND Physician Assistant
DX: I50.42 Chronic combined systolic (congestive) and diastolic (congestive) heart failure (principal)

== ENCOUNTER 2019-12-30 08:42 | Emergency (ER) | payer MEDICAID ==
[~2019-12-30] VITALS: Ht 170.2 cm; Wt 93.2 kg
[~2019-12-30 08:42] MED LIST changes: -ASPI-1 PO; -ENTR1TAB7 PO
[2019-12-30] MEDS ORDERED: ASPI-1 PO (08:55)
[2019-12-30] MEDS ORDERED: ENTR1TAB7 PO (08:55)
[2019-12-30] MEDS ORDERED: ONDANSETRON 4MG/2ML VIAL IV ONE (09:15)
[2019-12-30] MEDS ORDERED: MORPHINE 4 MG/ML 1ML VIAL/SYRINGE (J2270) IV PRN (09:15)
[2019-12-30 09:33] LABS: BASO % 0.3 % (0.0-1.0); EOS # 0.2 10^3/uL (0.0-0.5); EOS % 1.3 % (0.0-3.0); HEMATOCRIT 43.1 % (42.0-52.0); HEMOGLOBIN 13.5 g/dl (13.5-17.5); LYMPH # 0.8 10^3/uL (1.5-5.0); LYMPH % 7.1 % (24.0-44.0); MEAN CORPUSCULAR HEMOGLOBIN 25.8 pg (27.0-33.0); MEAN CORPUSCULAR HGB CONC 31.3 g/dl (32.0-36.5); MEAN CORPUSCULAR VOLUME 82.4 fl (80.0-96.0); MONO # 0.9 10^3/uL (0.0-0.8); MONO % 7.5 % (0.0-5.0); NEUTROPHILS # 9.7 10^3/uL (1.5-8.5); NEUTROPHILS % 83.3 % (36.0-66.0); PLATELET COUNT, AUTOMATED 293 10^3/uL (150-450); RED BLOOD COUNT 5.23 10^6/uL (4.30-6.10); WHITE BLOOD COUNT 11.6 10^3/uL (4.0-10.0)
[2019-12-30 09:58] LABS: INR 1.02; PARTIAL THROMBOPLASTIN TIME 29.8 SECONDS (25.0-38.4); PROTHROMBIN TIME 13.1 SECONDS (11.8-14.0)
[2019-12-30 10:01] LABS: D-DIMER QUANT 1285.36 ng/ml (<500)
[2019-12-30 10:03] LABS: ALBUMIN 4.2 GM/DL (3.2-5.2); ALT/SGPT 25 U/L (12-78); BILIRUBIN,DIRECT 0.3 MG/DL (0.0-0.2); BILIRUBIN,TOTAL 1.3 MG/DL (0.2-1.0); BLOOD UREA NITROGEN 12 MG/DL (7-18); CALCIUM LEVEL 9.2 MG/DL (8.5-10.1); CARBON DIOXIDE LEVEL 30 MEQ/L (21-32); CHLORIDE LEVEL 102 MEQ/L (98-107); CK-MB VALUE MASS 1.4 NG/ML (<3.6); CPK CREATINE PHOSPHOKINASE 96 U/L (39-308); FREE T4 1.02 NG/DL (0.76-1.46); GLOMERULAR FILTRATION RATE > 60.0 (>56); GLUCOSE, FASTING 118 MG/DL (70-100); LIPASE 182 U/L (73-393); MB/CK RELATIVE INDEX 1.46 (< OR =4); NT-PRO BNP 1527 PG/ML (<125); POTASSIUM SERUM 3.4 MEQ/L (3.5-5.1); SODIUM LEVEL 141 MEQ/L (136-145); THYROID STIMULATING HORMONE 0.551 uIU/ML (0.358-3.740); TROPONIN I 0.03 NG/ML (< 0.10)
[2019-12-30] MEDS ORDERED: ISOVUE-370 76% 100ML VIAL As Ordered ONE (10:37)
--- NOTE | 2019-12-30 12:06 | ECGEPIP ---
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
[2019-12-30] MEDS ORDERED: NS 500 ML IV ONE (14:00)
[2019-12-30] MEDS ORDERED: ALPRAZolam 0.25 MG TAB PO ONE (15:15)
[2019-12-30 15:30] VITALS: BP 113/65
[2019-12-30 15:37] LABS: CK-MB VALUE MASS 1.2 NG/ML (<3.6); MB/CK RELATIVE INDEX 1.58 (< OR =4); TROPONIN I 0.03 NG/ML (< 0.10)
--- NOTE | 2019-12-30 15:43 | ECGEPIP ---
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
--- NOTE | 2020-01-01 09:18 | REP ---
Left lower extremity Duplex Doppler venous ultrasound: Real time compression and duplex Doppler interrogation of the left lower extremity deep venous system is performed. The left common femoral, superficial femoral and popliteal veins are fully compressible with transducer pressure and demonstrate normal spontaneous and phasic flow, without evidence of deep venous thrombosis. Impression: No evidence of deep venous thrombosis of the left lower extremity femoral popliteal venous system. Electronically Signed by Morgan Lee MD 01/01/2020 09:09 A
--- NOTE | 2020-01-01 11:20 | REP ---
CT ANGIOGRAM CHEST: TECHNIQUE: Axial contrast-enhanced images from the thoracic inlet to the upper abdomen using 100 mL Isovue-370 intravenous contrast material with multiplanar reformations. There is no CT evidence of pulmonary embolism. There is no thoracic aortic aneurysm or dissection. There is mild cardiomegaly. There is no mediastinal, hilar, or chest wall lymphadenopathy. No pericardial effusion is seen. There is a small right pleural effusion. Very mild patchy parenchymal opacity in the dependent right lower lobe may represent mild atelectasis or infiltrate. There is mild fibroatelectatic change in the lingula. IMPRESSION: No CT evidence of pulmonary embolism. Mild cardiomegaly. Small right pleural effusion with mild right lower lobe atelectasis/infiltrate. Electronically Signed by Morgan Lee MD 01/01/2020 01:40 P
--- NOTE | 2020-01-01 20:18 | ED PDOC ---
Post-Departure Follow-Up cta chest faxed to dr carrera for fu Luis Chapmagne MD January 01, 2020 20:18
== END 2019-12-30 15:53 | disposition home or self-care (01) ==
LOC: M ED 08:42
DX: R07.89 Other chest pain (principal); I10 Essential (primary) hypertension; E78.49 Other hyperlipidemia; Z87.891 Personal history of nicotine dependence; Z88.0 Allergy status to penicillin; Z88.8 Allergy status to other drugs, medicaments and biological substances
CPT/HCPCS: 36415; 71045; 71275; 80048; 80076; 82550; 82553; 83605; 83690; 83735; 83880; 84439; 84443; 85025; 85379; 85610; 85730; 87040; 93005; 93041; 93971; 94760; 96374; 96375; 99285; J2270; J2405; Q9967

== ENCOUNTER → 2020-01-28 | Outpatient (CLI) | payer OTHER ==
[~2020-01-28] MED LIST changes: +ASPI-1 PO; +ENTR1TAB7 PO
== END ==
LOC: M LABSMTC 10:41
PROVIDERS: ATTEND Internal Medicine Cardiovascular Disease
DX: Z03.818 Encounter for observation for suspected exposure to other biological agents ruled out (principal); Z11.59 Encounter for screening for other viral diseases
CPT/HCPCS: C9803; U0003

== ENCOUNTER → 2020-02-13 | Outpatient (REF) | payer OTHER ==
[2020-02-13 15:38] LABS: ALBUMIN 3.6 GM/DL (3.2-5.2); ALT/SGPT 19 U/L (12-78); BILIRUBIN,TOTAL 0.9 MG/DL (0.2-1.0); BLOOD UREA NITROGEN 13 MG/DL (7-18); CALCIUM LEVEL 9.5 MG/DL (8.5-10.1); CARBON DIOXIDE LEVEL 31 MEQ/L (21-32); CHLORIDE LEVEL 105 MEQ/L (98-107); CREATININE FOR GFR 1.05 MG/DL (0.70-1.30); GLOMERULAR FILTRATION RATE > 60.0 (>56); GLUCOSE, FASTING 101 MG/DL (70-100); POTASSIUM SERUM 4.3 MEQ/L (3.5-5.1); SODIUM LEVEL 141 MEQ/L (136-145); TOTAL PROTEIN 7.8 GM/DL (6.4-8.2)
== END ==
LOC: M PLALAB 12:14
PROVIDERS: ATTEND Nurse Practitioner Family
DX: F41.1 Generalized anxiety disorder (principal)